=== PATIENT | male | born 1965 | race Caucasian/White ===

== ENCOUNTER 2016-10-09 12:04 | Day surgery (SDC) | payer OTHER ==
[2016-10-09] VITALS (8 sets, daily range): BP systolic 105–119; BP diastolic 58–71; PULSE 63–68; RESP 12–19; Ht 185.4 cm; Wt 135.0 kg
[~2016-10-09] VITALS: Ht 185.4 cm; Wt 135.0 kg
--- NOTE | 2016-10-09 13:27 | RADRPT ---
PROCEDURE: Chest Radiograph. CLINICAL INDICATION: Preop TECHNIQUE: Single frontal chest radiograph. COMPARISON: None available FINDINGS: The cardiomediastinal silhouette is within normal limits. No infiltrate or effusion is seen. Th e bones are intact. IMPRESSION: 1. Unremarkable chest radiograph. RPTAT: KK .Wilmer Melchor MD, MD Date Time Electronically viewed and signed by .Wilmer Melchor MD, on 10/09/2016 13:26 .B/
[2016-10-09 13:33] LABS: ADD SCAN DIFF NO
[2016-10-09 13:34] LABS: BASOPHILS % 0.3 % (0.0-2.0); EOSINOPHILS # 0.1 10^3/ul (0.0-0.5); HEMATOCRIT 43.9 % (42.0-52.0); HEMOGLOBIN 14.7 g/dl (14.0-18.0); LYMPHOCYTES # 2.4 10^3/ul (0.8-2.9); LYMPHOCYTES % 33.3 % (15.0-51.0); MEAN CORPUSCULAR HEMOGLOBIN 30.9 pg (29.0-33.0); MEAN CORPUSCULAR HGB CONC 33.5 g/dl (32.0-37.0); MEAN CORPUSCULAR VOLUME 92.2 fl (82.0-101.0); MEAN PLATELET VOLUME 9.8 fl (7.4-10.4); MONOCYTE # 0.5 10^3/ul (0.3-0.9); MONOCYTES % 6.7 % (0.0-11.0); NEUTROPHIL # 4.2 10^3/ul (1.6-7.5); NEUTROPHILS % 58.4 % (39.0-77.0); PLATELET COUNT 282 10^3/UL (140-415); RED BLOOD COUNT 4.76 10^6/ul (4.70-6.10); RED CELL DISTRIBUTION WIDTH 12.1 % (11.5-14.5); WHITE BLOOD COUNT 7.3 10^3/ul (4.8-10.8)
[2016-10-09 13:54] LABS: ALBUMIN 4.7 g/dl (3.3-4.9); ALBUMIN/GLOBULIN RATIO 1.67; BILIRUBIN,INDIRECT 0.5 mg/dl (0-1.1); BILIRUBIN,TOTAL 0.5 mg/dl (0.2-1.3); TOTAL PROTEIN 7.5 g/dl (6.1-8.1)
[2016-10-09 14:01] LABS: INR 0.99; PROTIME 13.1 Sec (12.2-14.2)
[2016-10-09 14:02] LABS: PARTIAL THROMBOPLASTIN TIME 28.5 Sec (25.0-35.0)
[2016-10-09 14:13] LABS: CALCIUM 9.1 mg/dl (8.4-10.2); CREATININE 0.89 mg/dl (0.61-1.24); POTASSIUM 4.3 mmol/L (3.5-5.1)
[2016-10-09] MEDS ORDERED: MIDAZOLAM 1 MG/ML 2 ML INJ ONE (15:21)
[2016-10-09] MEDS ORDERED: BUPIVACAINE 0.25% (MPF) 30 ML INJ ONE (15:22)
[2016-10-09] MEDS ORDERED: FENTAnyl 50 MCG/ML VIAL ONE (15:22)
[2016-10-09] MEDS ORDERED: morphine 10 MG INJ ONE (16:11)
--- NOTE | 2016-10-09 16:23 | OPR ---
Date/Time of Note Date/Time of Note DATE: 10/09/16 TIME: 16:21 Operative Report Procedure Date: Oct 09, 2016 Preoperative Diagnosis upper back mass Postoperative Diagnosis same Operation Performed excision of upper back mass 8 cm incision 8 cm mass localized adjacent tissue transfer with the use of skin flaps 16 sq cm defect therapeutic injection of subcutaneous marcaine Surgeon: Sohail SILVA Procedure Description Patient is taken to the OR and prepped and draped in usual sterile fashion. Surgical timeout was performed IV antibiotics are given. Incision is made transversely over the upper back mass with a 10 blade. Dissection cautery was carried out the mass in circumference excised. There is good hemostasis due to large tissue defect localized adjacent to stress of the skin flaps was performed. Multilayer closure with interrupted 3-0 Vicryl and skin elizabeth. Local anesthesia is injected. Dressings applied. Sohail SILVA Oct 09, 2016 16:23
[2016-10-09] MEDS ORDERED: PROPOFOL 20 ML ONE (16:26)
[2016-10-09] MEDS ORDERED: LIDOCAINE 2% (SDV) 5 ML INJ ONE (16:26)
[2016-10-09] MEDS ORDERED: ONDANSETRON 4 MG INJ ONE (16:27)
[2016-10-09] MEDS ORDERED: CEFAZOLIN 1 GM INJ ONE (16:27)
[2016-10-09] MEDS ORDERED: HYDROCODONE/APAP (5/325) TAB PO ONE ×2 (16:30)
--- NOTE | 2016-10-12 11:06 | RADRPT ---
Vent Rate: 72 bpm RR Interval: 0 msec PA Interval: 182 msec QRS Duration: 94 msec QT Interval: 396 msec QTC Interval: 433 msec P-R-T [place]: 39 - 48 - 55 degrees Normal sinus rhythm Normal ECG Electronically Signed By: Tejas Flores [id number]
== END 2016-10-09 18:00 | disposition home or self-care (01) ==
LOC: SDS 12:04
PROVIDERS: ATTEND Surgery
DX: D17.1 Benign lipomatous neoplasm of skin and subcutaneous tissue of trunk (principal); E66.01 Morbid (severe) obesity due to excess calories; Z68.39 Body mass index [BMI] 39.0-39.9, adult
CPT/HCPCS: 14001; 71010; 80053; 85025; 85610; 85730; 88307; 93005; J0690; J2250; J2270; J2405; J3010; Z7512; Z7610

== ENCOUNTER 2019-01-29 11:53 | Emergency (ER) | payer OTHER ==
[~2019-01-29] VITALS: Ht 185.4 cm; Wt 155.2 kg
[~2019-01-29 11:53] MED LIST: IBUP800T48 PO
[2019-01-29 12:16] VITALS: Ht 185.4 cm; Wt 155.2 kg
[2019-01-29] MEDS ORDERED: KETOROLAC 30 MG INJ IM STA (12:47)
[2019-01-29 14:23] VITALS: BP 110/66; PULSE 70; RESP 18
== END 2019-01-29 14:23 | disposition home or self-care (01) ==
LOC: FTE 11:53
DX: N50.811 Right testicular pain (principal)
CPT/HCPCS: 76870; 81003; 87086; 96372; J1885; Z7502